=== PATIENT | female | born 1965 | race Caucasian/White ===

== ENCOUNTER 2021-02-11 08:42 | Outpatient (REF) | payer OTHER, SELFPAY ==
[2021-02-11 09:28] LABS: MANUAL DIFF FLAG NO
[2021-02-11 09:33] LABS: Basophils Absolute Auto 0.1 X10*3/uL (0.0-0.2); Basophils Percent Auto 0.8 % (0-2); Eosinophils Absolute Auto 0.1 X10*3/uL (0.0-0.4); Eosinophils Percent Auto 2.1 % (0-4); Hematocrit 44.9 % (37-47); Imm Gran Abs Auto 0.04 X10*3/uL (0.00-0.03); Imm Gran Pct Auto 0.6 % (0.0-0.4); Lymphocytes Absolute Auto 1.7 X10*3/uL (1.2-4.9); Lymphocytes Percent Auto 26.9 % (20-40); Mean Corpuscular HGB Conc 33.4 g/dl (31.0-35.0); Mean Corpuscular Hemoglobin 29.3 pg (27.0-33.0); Mean Corpuscular Volume 87.7 fL (80-98); Mean Platelet Volume 9.3 fL (9.4-12.3); Monocytes Absolute Auto 0.5 X10*3/uL (0.1-1.2); Neutrophils Absolute Auto 3.9 X10*3/uL (2.0-8.3); Neutrophils Percent Auto 61.6 % (45-73); Platelet Count 262 X10*3/uL (160-400); Red Blood Count 5.12 X10*6/uL (4.20-5.50); Red Cell Distribution Width 12.1 % (11.0-16.0); White Blood Count 6.3 X10*3/uL (4.8-10.8)
[2021-02-11 09:43] LABS: Appearance Urine HAZY; Color Urine YELLOW; Glucose Urine UA NEG (NEG); Leukocyte Esterase Urine 2+ (NEG); Nitrite Urine NEG (NEG); Urine Blood NEG (NEG); Urine Ketones NEG (NEG); Urine Protein NEG (NEG-TRACE)
[2021-02-11 09:51] LABS: Alanine Aminotransferase 45 U/L (0-31); Albumin Level 4.5 g/dL (3.5-5.0); Alkaline Phosphatase 68 U/L (39-117); Anion Gap 11 (12-20); Aspartate Amino Transferase 35 U/L (5-31); Bilirubin Total 0.4 mg/dL (0.0-1.0); Blood Urea Nitrogen 16 mg/dL (9-16); Carbon Dioxide 29 mmol/L (22-29); Chloride 106 mmol/L (96-108); Cholesterol 194 mg/dL; Estimated Glomerular Filt Rate > 60; Glucose Fasting 100 mg/dL (60-99); HDL Cholesterol 74 mg/dL; LDL Cholesterol Calculated 107 mg/dl; Potassium 4.8 mmol/L (3.3-5.1); Sodium 141 mmol/L (135-145); Total Protein 7.4 g/dL (6.5-8.0); Triglycerides 65 mg/dL
[2021-02-11 10:17] LABS: TSH reflex Free T4 1.68 uIU/mL (0.32-4.0)
[2021-02-11 10:31] LABS: Bacteria Urine 1+ /LPF; Mucus Urine 1+ /LPF; RBC Urine 0 /HPF (0); Squamous Epithelial Cell Urine 2+ /LPF
== END 2021-02-11 08:43 | disposition home or self-care (01) ==
LOC: HO.LAB 08:42
PROVIDERS: Absent Provider Internal Medicine; PCP Internal Medicine; Visit Provider Psychiatry & Neurology Neurology
DX: Z00.00 Encounter for general adult medical examination without abnormal findings (principal); C71.9 Malignant neoplasm of brain, unspecified
CPT/HCPCS: 36415; 80053; 80061; 81001; 84443; 85025

== ENCOUNTER 2021-02-17 12:26 | Outpatient (REF) | payer OTHER, SELFPAY ==
[2021-02-17 13:59] LABS: MANUAL DIFF FLAG NO
[2021-02-17 14:10] LABS: Basophils Percent Auto 0.3 % (0-2); Eosinophils Absolute Auto 0.2 X10*3/uL (0.0-0.4); Eosinophils Percent Auto 2.2 % (0-4); Hemoglobin 13.9 g/dl (12.0-16.0); Imm Gran Abs Auto 0.02 X10*3/uL (0.00-0.03); Imm Gran Pct Auto 0.3 % (0.0-0.4); Lymphocytes Absolute Auto 2.3 X10*3/uL (1.2-4.9); Lymphocytes Percent Auto 31.6 % (20-40); Mean Corpuscular HGB Conc 33.9 g/dl (31.0-35.0); Mean Corpuscular Hemoglobin 29.6 pg (27.0-33.0); Mean Corpuscular Volume 87.2 fL (80-98); Mean Platelet Volume 9.7 fL (9.4-12.3); Monocytes Absolute Auto 0.6 X10*3/uL (0.1-1.2); Monocytes Percent Auto 8.3 % (2-11); Neutrophils Absolute Auto 4.2 X10*3/uL (2.0-8.3); Neutrophils Percent Auto 57.3 % (45-73); Platelet Count 291 X10*3/uL (160-400); Red Cell Distribution Width 12.3 % (11.0-16.0); White Blood Count 7.2 X10*3/uL (4.8-10.8)
== END 2021-02-17 12:27 | disposition home or self-care (01) ==
LOC: HO.10HDL 12:26
PROVIDERS: Visit Provider Psychiatry & Neurology Neurology
DX: C71.9 Malignant neoplasm of brain, unspecified (principal)
CPT/HCPCS: 36415; 85025

== ENCOUNTER 2021-02-24 07:10 | Outpatient (REF) | payer OTHER, SELFPAY ==
[2021-02-24 10:22] LABS: MANUAL DIFF FLAG NO
[2021-02-24 10:27] LABS: Basophils Absolute Auto 0.1 X10*3/uL (0.0-0.2); Eosinophils Absolute Auto 0.2 X10*3/uL (0.0-0.4); Hematocrit 42.9 % (37-47); Hemoglobin 14.3 g/dl (12.0-16.0); Imm Gran Abs Auto 0.02 X10*3/uL (0.00-0.03); Imm Gran Pct Auto 0.4 % (0.0-0.4); Lymphocytes Absolute Auto 1.5 X10*3/uL (1.2-4.9); Lymphocytes Percent Auto 29.6 % (20-40); Mean Corpuscular HGB Conc 33.3 g/dl (31.0-35.0); Mean Corpuscular Hemoglobin 29.1 pg (27.0-33.0); Mean Corpuscular Volume 87.4 fL (80-98); Mean Platelet Volume 9.5 fL (9.4-12.3); Monocytes Absolute Auto 0.5 X10*3/uL (0.1-1.2); Monocytes Percent Auto 9.4 % (2-11); Neutrophils Absolute Auto 2.8 X10*3/uL (2.0-8.3); Neutrophils Percent Auto 56.6 % (45-73); Platelet Count 250 X10*3/uL (160-400); Red Blood Count 4.91 X10*6/uL (4.20-5.50); Red Cell Distribution Width 12.5 % (11.0-16.0)
== END 2021-02-24 07:11 | disposition home or self-care (01) ==
LOC: HO.10HDLR 07:10
PROVIDERS: Visit Provider Psychiatry & Neurology Neurology
DX: C71.9 Malignant neoplasm of brain, unspecified (principal)
CPT/HCPCS: 36415; 85025

== ENCOUNTER 2021-02-28 10:42 | Outpatient (REF) | payer OTHER, SELFPAY ==
[2021-02-28 14:00] LABS: Alanine Aminotransferase 27 U/L (0-31); Albumin Level 4.2 g/dL (3.5-5.0); Alkaline Phosphatase 72 U/L (39-117); Aspartate Amino Transferase 35 U/L (5-31); Bilirubin Direct < 0.2 mg/dL (0.0-0.5); Bilirubin Total 0.4 mg/dL (0.0-1.0); Total Protein 7.3 g/dL (6.5-8.0)
== END 2021-02-28 10:43 | disposition home or self-care (01) ==
LOC: HO.10HDL 10:42
PROVIDERS: Absent Provider Internal Medicine; Visit Provider Urology
DX: C71.9 Malignant neoplasm of brain, unspecified (principal)
CPT/HCPCS: 36415; 80076

== ENCOUNTER 2021-03-10 07:54 | Outpatient (REF) | payer OTHER, SELFPAY | END 2021-03-10 07:55 | disposition home or self-care (01) | LOC: HO.10HDLR 07:54 | PROVIDERS: Visit Provider Psychiatry & Neurology Neurology | DX: Z13.89 Encounter for screening for other disorder (principal) ==

== ENCOUNTER 2021-04-16 17:15 | Outpatient (REF) | payer OTHER, SELFPAY | END 2021-04-16 17:16 | disposition home or self-care (01) | LOC: HO.LNP 17:15 | PROVIDERS: Visit Provider Urology | DX: N39.0 Urinary tract infection, site not specified (principal) | CPT/HCPCS: 87086; 87147 ==

== ENCOUNTER → 2021-06-27 13:19 | Outpatient (BNVA) | payer OTHER, SELFPAY | PROVIDERS: PCP Internal Medicine; Referring Provider Internal Medicine; Visit Provider Surgery | DX: K64.8 Other hemorrhoids (principal) | CPT/HCPCS: 46600 ==

== ENCOUNTER 2021-07-16 06:08 | Emergency (ER) | payer OTHER, SELFPAY ==
--- NOTE | ~2021-07-16 | XR_ITS ---
EXAMINATION: XR CLAVICLE, RIGHT CLINICAL INFORMATION: Pain under the clavicle COMPARISON: None TECHNIQUE: Two views of the right clavicle. FINDINGS: There is no fracture or cortical disruption. Appropriate positioning of the clavicle. The acromioclavicular joint is intact. The visualized lung is clear. The visualized ribs are intact. Appropriate alignment of the right shoulder. XR/XR clavicle RT IMPRESSION: Normal right clavicle.
[2021-07-16 06:19] VITALS: BP 117/87; PULSE 89; RESP 18; TEMP 36.8; O2SAT 97; BMI 20.2
--- NOTE | 2021-07-16 07:29 | ED.GENADULT ---
HPI - General Adult General Chief complaint: Neck Pain/Injury Stated complaint: neck pain, PT diagnosed with brain cancer Time Seen by Provider: 07/16/21 07:10 Source: patient Mode of arrival: ambulatory Limitations: no limitations History of Present Illness HPI narrative: Patient comes to the emergency room complaining of jolting pain on the right side of the neck, mostly under the right clavicle. Patient also complaining of right upper and lower eyelid swelling and eye pain. Patient denies fever. Patient does have chills. The patient states that she is currently enrolled in a [facility] trial for glioblastoma, taking a drug called [id number]. Per patient, it is known to be a side effect of the drug. Patient states that prior to arrival to the ED, she took a muscle relaxant, but did not help much. Patient is concerned that muscle relaxants cause her to have severe constipation. Related Data Home Medications Medication Instructions Recorded Confirmed vitamin B complex (B 1 tab PO DAILY 02/05/21 06/27/21 Complex-Vitamin B12) amoxicillin 875 mg-potassium 1 tab PO BID 06/27/21 06/27/21 clavulanate 125 mg tablet Previous Rx's Medication Instructions Recorded estradiol See Rx Instructions .ROUTE 3XW 30 02/28/21 Days #42.5 g amlodipine 2.5 mg tablet 2.5 mg PO DAILY #90 tab 04/30/21 linaclotide 290 mcg capsule 290 mcg PO DAILY #30 cap 07/14/21 (Linzess) sulfamethoxazole 800 1 tab PO BID 14 Days #28 tab 07/15/21 mg-trimethoprim 160 mg tablet (Bactrim DS) diazepam 2 mg tablet (Valium) 2 mg PO TID PRN #10 tab 07/16/21 diclofenac sodium 1 % topical gel 4 g TOPICAL QID PRN #100 g 07/16/21 (Voltaren Arthritis Pain) erythromycin 5 mg/gram (0.5 %) eye 1 appl OPHTHALMIC-RIGHT DAILY #3.5 07/16/21 ointment g lactulose 10 gram oral packet 20 g PO TID PRN #15 ea 07/16/21 Allergies Allergy/AdvReac Type Severity Reaction Status Date / Time No Known Allergies Allergy Verified 06/27/21 13:32 Review of Systems Review of Systems: Constitutional : No Weight loss, No Fever, complaining intermittent Chills, No Night Sweats, No Fatigue, No Malaise ENT/Mouth : No Hearing loss, No Ear Pain, No Nasal Congestion, No Sinus Pain, No Hoarseness, No sore throat, No Rhinorrhea, No Swallowing Difficulty Eyes: Complaining right eye pain, swelling of both upper and lower eyelids, very photosensitive Cardiovascular : No Chest Pain, No SOB, No Dyspnea on Exertion, No Orthopnea, No Edema, No Palpitations Respiratory : No Cough, No Sputum, No Wheezing, No Smoke Exposure, No Dyspnea Gastrointestinal : No Nausea, No Vomiting, No Diarrhea, No Constipation, No abdominal Pain, No Hematochezia, No Melena Genitourinary : no irregular bleeding, No Dysuria, No Urinary Frequency, No Hematuria, No Urinary Incontinence, No Urgency, No Flank Pain, No Urinary Flow Changes, No Hesitancy Musculoskeletal : Complaining of jolting pain on the right side of the neck and the knee the right clavicle Skin : No Skin Lesions, No rash Neuro : No Weakness, No Numbness, No Paresthesias, No Loss of Consciousness, No Dizziness, No Headache Psych : No Anxiety/Panic, No Depression, No SI/HI/AH/VH, No Social Issues, Heme/Lymph: No Bruising, No Bleeding,No Lymphadenopathy Endocrine : No Polyuria, No Polydipsia, No Temperature Intolerance PMFSH Past Medical History Medical History Annual physical exam Elevated LFTs Glioblastoma Hemorrhoids with complication HTN (hypertension) Normal colonoscopy Normal Pap smear Surgical History Hx of breast augmentation Hx of craniotomy Hx of sinus surgery Family History Family History Son Substance use disorder Brother Substance use disorder Social History Social History Household Members Other:: , 4 adult childern, exercise , runs marathons. Housing: House Patient Tobacco Use Status: Never used Tobacco e-Cigarette/Vaping Use: Never Used Second Hand Smoke Exposure: No Advance Directives: No Advance Directives Information Provided: Yes Patient : No service: No Current occupational status: employed Physical Exam Vital Signs: Vital Signs: Last Vital Signs Temp 98.2 F 07/16/21 06:19 Pulse 89 07/16/21 06:19 Resp 18 07/16/21 06:19 BP 117/87 07/16/21 06:19 Pulse Ox 97 07/16/21 06:19 BMI result Body Mass Index 20.2 Const: Other: Appearance: Alert. Oriented X3. No acute distress. Eyes: Pupils equal, round and reactive to light. Right eye has significant photosensitivity. Both upper and lower eyelids are mildly sensitive to touch, swollen, erythematous, no vesicles. Patient has no pain with eye movements. ENT: Pharynx normal. Fluorescent stain negative for corneal abrasions or dendrites Neck: Normal inspection. Neck supple. No lymph nodes noted. No crepitus, no abnormalities palpated above or below the right clavicle CVS: Normal heart rate and rhythm. Pulses normal. Normal S1 and S2 Respiratory: No respiratory distress. Breath sounds normal. No Wheezing. No rales Abdomen: Soft and nontender. Skin: Skin warm and dry. Extremities: No lower extremity edema. Neuro: Oriented X 3. No motor deficit. No sensory deficit. Moving all extermities. No slurred speech. Course Course Course Narrative: I discussed the physical exam with the patient and her . Patient likely has irritation in her eye from constantly rubbing her eye/cleaning from chronic tearing. Patient felt much better after Valium, no longer having the pain under her clavicle/right side of the neck. I discussed with the patient that she would benefit from erythromycin ointment, to prevent infection and also to sooth the eyelid skin from constant rubbing Discharge Plan Discharge Clinical Impression: Muscle spasm, Dermatitis Patient Disposition: Home, Self-Care Instructions: Muscle Spasm (ED), Dermatitis (ED) Additional Instructions: Please follow-up with your primary care physician tomorrow. If the eye does not improve over the shaver have any new symptoms, please call your field logistics coordinator. If you have any worsening or new symptoms, please return to the emergency room or call 911 Prescriptions: New erythromycin 5 mg/gram (0.5 %) ointment 1 appl ophthalmic-Right DAILY Qty: 3.5 1RF diazepam [Valium] 2 mg tablet 2 mg PO TID PRN (Reason: muscle spasm) Qty: 10 0RF lactulose 10 gram packet 20 g PO TID PRN (Reason: constipation) Qty: 15 0RF diclofenac sodium [Voltaren Arthritis Pain] 1 % gel 4 g topical QID PRN (Reason: muscle spasticity) Qty: 100 0RF Rx Instructions: apply to single knee, ankle, foot; for foot includes sole/toes/top of foot No Action estradiol 0.01 % (0.1 mg/gram) cream See Rx Instructions .Route 3XW 30 Days Qty: 42.5 2RF Rx Instructions: pea-sized to urethra 3 times a week amlodipine 2.5 mg tablet 2.5 mg PO DAILY Qty: 90 0RF Linzess 290 mcg capsule 290 mcg PO DAILY Qty: 30 3RF sulfamethoxazole-trimethoprim [Bactrim DS] 800-160 mg tablet 1 tab PO BID 14 Days Qty: 28 1RF vitamin B complex [B Complex-Vitamin B12] Tablet 1 tab PO DAILY 0RF amoxicillin-pot clavulanate 875-125 mg tablet 1 tab PO BID 0RF
--- NOTE | 2021-07-16 07:31 | PC.NURSE ---
PT IN SEVERE PAIN WHEN MOVING NECK. ASSISTED TO BED. AT BEDSIDE
[2021-07-16] MEDS: diazePAM 5 MG TABLET PO (07:50)
[2021-07-16] MEDS: Tetracaine HCl/PF 0.5% Oph Sol 4 ML DROPS 1 DROP EYE-RIGHT (07:50)
[2021-07-16] MEDS: Fluorescein Sodium STRIP 1 STRIP EYE-RIGHT (07:50)
== END 2021-07-16 08:46 | disposition home or self-care (01) ==
PROVIDERS: Emergency Provider Emergency Medicine; PCP Internal Medicine
DX: M62.838 Other muscle spasm (principal); M54.2 Cervicalgia; L30.9 Dermatitis, unspecified; C71.9 Malignant neoplasm of brain, unspecified; I10 Essential (primary) hypertension
CPT/HCPCS: 73000; 99283

== ENCOUNTER 2021-08-08 16:24 | Outpatient (REF) | payer OTHER, SELFPAY ==
--- NOTE | ~2021-08-08 | XR_ITS ---
EXAMINATION: XR THORACOLUMBAR SPINE CLINICAL INFORMATION: Back spasms COMPARISON: None TECHNIQUE: 2 views of the thoracic spine FINDINGS: Mild degenerative endplate changes in the midthoracic spine. No fracture. Visualized mediastinum and lungs are unremarkable. XR/XR thoracic spine 2V IMPRESSION: Mild degenerative changes in the midthoracic spine. No fracture.
--- NOTE | ~2021-08-08 | XR_ITS ---
EXAMINATION: XR LUMBOSACRAL SPINE CLINICAL INFORMATION: Chest pain. Back spasms. COMPARISON: None TECHNIQUE: Three views of the lumbosacral spine. FINDINGS: Mild degenerative disc space narrowing at L5-S1. Otherwise vertebral disc space heights are maintained. Vertebral body heights appear normal. No compression fracture. Alignment is anatomic. XR/XR lumbar spine 2-3V IMPRESSION: Mild degenerative disc disease at L5-S1.
== END 2021-08-08 16:25 | disposition home or self-care (01) ==
LOC: HO.XRAY 16:24
PROVIDERS: PCP Internal Medicine; Visit Provider Internal Medicine
DX: R07.9 Chest pain, unspecified (principal); M48.061 Spinal stenosis, lumbar region without neurogenic claudication
CPT/HCPCS: 72070; 72100

== ENCOUNTER 2021-12-09 09:27 | Outpatient (REF) | payer OTHER, SELFPAY ==
--- NOTE | ~2021-12-09 | XR_ITS ---
EXAMINATION: STERNUM AND CHEST X-RAY. CLINICAL INFORMATION: Chest pain. COMPARISON: None TECHNIQUE: 2 views chest and sternum 2 views. FINDINGS: STERNUM: There is no visible fracture or cortical irregularity. The PA and posterolateral soft tissues are normal. CHEST: The lungs are well-expanded and clear. The heart size and pulmonary vascularity is normal. There is bilateral apical pleural thickening. There is no pleural effusion. No gross bony abnormality. XR/XR chest 2V IMPRESSION: Unremarkable sternal exam. Unremarkable chest and rib exam.
--- NOTE | ~2021-12-09 | XR_ITS ---
EXAMINATION: STERNUM AND CHEST X-RAY. CLINICAL INFORMATION: Chest pain. COMPARISON: None TECHNIQUE: 2 views chest and sternum 2 views. FINDINGS: STERNUM: There is no visible fracture or cortical irregularity. The PA and posterolateral soft tissues are normal. CHEST: The lungs are well-expanded and clear. The heart size and pulmonary vascularity is normal. There is bilateral apical pleural thickening. There is no pleural effusion. No gross bony abnormality. XR/XR sternum min 2V IMPRESSION: Unremarkable sternal exam. Unremarkable chest and rib exam.
[2021-12-09 10:24] LABS: MANUAL DIFF FLAG NO
[2021-12-09 10:30] LABS: Basophils Absolute Auto 0.1 X10*3/uL (0.0-0.2); Basophils Percent Auto 1.3 % (0-2); Eosinophils Absolute Auto 0.2 X10*3/uL (0.0-0.4); Eosinophils Percent Auto 3.2 % (0-4); Hematocrit 37.1 % (37.0-47.0); Hemoglobin 11.3 g/dl (12.0-16.0); Imm Gran Abs Auto 0.02 X10*3/uL (0.00-0.03); Imm Gran Pct Auto 0.3 % (0.0-0.4); Lymphocytes Absolute Auto 0.9 X10*3/uL (1.2-4.9); Lymphocytes Percent Auto 13.3 % (20-40); Mean Corpuscular HGB Conc 30.5 g/dl (31.0-35.0); Mean Corpuscular Hemoglobin 25.1 pg (27.0-33.0); Mean Corpuscular Volume 82.3 fL (80.0-98.0); Mean Platelet Volume 9.5 fL (9.4-12.3); Monocytes Absolute Auto 0.5 X10*3/uL (0.1-1.2); Monocytes Percent Auto 7.8 % (2-11); Neutrophils Absolute Auto 5.1 x10*3/uL (2.0-8.3); Neutrophils Percent Auto 74.1 % (45-73); Platelet Count 341 X10*3/uL (160-400); Red Blood Count 4.51 X10*6/uL (4.20-5.50); Red Cell Distribution Width 15.3 % (11.0-16.0); White Blood Count 6.9 X10*3/uL (4.8-10.8)
[2021-12-09 10:54] LABS: Alanine Aminotransferase 12 U/L (0-31); Albumin Level 3.9 g/dL (3.5-5.0); Alkaline Phosphatase 99 U/L (39-117); Anion Gap 12 (12-20); Aspartate Amino Transferase 16 U/L (5-31); Bilirubin Total 0.2 mg/dL (0.0-1.0); Blood Urea Nitrogen 22 mg/dL (9-16); C Reactive Protein 5.38 mg/dL (< or = 0.50); Calcium 9.3 mg/dL (8.4-10.2); Carbon Dioxide 30 mmol/L (22-29); Chloride 104 mmol/L (96-108); Estimated Glomerular Filt Rate 58; Glucose Random 101 mg/dL (60-115); Potassium 4.6 mmol/L (3.3-5.1); Rheumatoid Factor < 15.0 IU/mL (<15.0); Sodium 141 mmol/L (135-145); Total Protein 6.9 g/dL (6.5-8.0)
[2021-12-09 11:00] LABS: Creatinine Urine 159.51 mg/dL; Protein/Creatinine Ratio, Ur 0.19 (<0.2); Total Protein Urine Random 30 mg/dL (<12)
[2021-12-09 11:21] LABS: Erythrocyte Sedimentation Rate 79 MM/HR (0-20)
[2021-12-12 15:07] LABS: Anti Nuclear Antibody Screen POSITIVE (NEGATIVE)
[2021-12-15 13:55] LABS: Cyclic Citrullinated Peptide <16 UNITS
== END 2021-12-09 09:28 | disposition home or self-care (01) ==
LOC: HO.10HDL 09:27
PROVIDERS: Visit Provider Internal Medicine Rheumatology
DX: R07.89 Other chest pain (principal); R70.0 Elevated erythrocyte sedimentation rate
CPT/HCPCS: 36415; 71046; 71120; 80053; 84156; 85025; 85652; 86038; 86039; 86140; 86200; 86431

== ENCOUNTER 2021-12-18 12:37 | Outpatient (REF) | payer OTHER, SELFPAY ==
--- NOTE | ~2021-12-18 | XR_ITS ---
EXAMINATION: XR HIP, LEFT WITH AP PELVIS CLINICAL INFORMATION: Left hip pain. COMPARISON: None TECHNIQUE: AP and frog-leg lateral views of the left hip are submitted, together with an AP view of the pelvis. FINDINGS: The bones and soft tissues are normal. No fracture. Sacroiliac and hip joints are normal. Pubic symphysis is normal. No abnormal soft tissue calcifications. XR/XR hip LT w PEL1V IMPRESSION: Normal left hip.
== END 2021-12-18 12:38 | disposition home or self-care (01) ==
LOC: HO.XRAY 12:37
PROVIDERS: PCP Internal Medicine; Visit Provider Internal Medicine Rheumatology
DX: M25.552 Pain in left hip (principal); C71.9 Malignant neoplasm of brain, unspecified
CPT/HCPCS: 73502

== ENCOUNTER 2022-01-15 11:49 | Emergency (ER) | payer OTHER, SELFPAY ==
--- NOTE | ~2022-01-15 | CT_ITS ---
EXAMINATION: CT HEAD WITHOUT CONTRAST CLINICAL INFORMATION: Right eye vision loss COMPARISON: None TECHNIQUE: Contiguous axial imaging was performed from the skull base to vertex without intravenous administration of contrast. Coronal and sagittal reformatted images are performed at CT scanner This CT examination was performed using dose optimization techniques as appropriate, variously including the following: *Automated exposure control *Adjustment of mA and/or kV according to patient size (this includes techniques or standardized protocols for targeted exams where dose is matched to indication/reason for exam; i.e. extremities or head) *Use of iterative reconstruction technique DLP: 707 mGy-cm FINDINGS: Status post right parietal-occipital craniotomy. There is an adjacent focal area of encephalomalacia in the right parietal-occipital lobe which is chronic. Ex-vacuo dilatation of the adjacent right lateral ventricle. No acute intracranial abnormality. There is no evidence of acute intracranial hemorrhage or acute territorial infarction. No abnormal mass effect or midline shift is seen. Dalal to white matter differentiation is well preserved. No extra-axial fluid collections are identified. There is generalized global volume loss. There is moderate prominence of the ventricles and the sulci . There is mild hypodensity of the periventricular white matter due to chronic small vessel ischemic disease. There are vascular calcifications of the internal carotid arteries bilaterally.The osseous structures and soft tissues are normal. The mastoid air cells and visualized portions of the paranasal sinuses are well aerated. CT/CT head/brain wo con IMPRESSION: No acute intracranial pathology.
[2022-01-15 12:12] VITALS: BP 152/82; PULSE 71; RESP 20; TEMP 36.7; O2SAT 99; BMI 22.9
[2022-01-15 14:59] VITALS: BP 132/74; PULSE 64; TEMP 36.9; O2SAT 95
--- NOTE | 2022-01-15 15:01 | ED_ITS ---
HPI - Eye Problem General Chief complaint: Eye Problems Stated complaint: Loss of vision R eye Time Seen by Provider: 01/15/22 12:16 Source: patient Mode of arrival: ambulatory Limitations: no limitations History of Present Illness HPI Narrative: this is very pleasent pt with hx of glioblastoma,seen Yesterday at [facility] MRI brain showed no new changes,poresented now with loss of vision OD,denies MURPHY,fever,any sistemic symptoms chief complaint: other (RT eye vision loss) Onset (ago): hour(s) (8) Onset description: sudden Duration: constant Location: right eye Eye Symptoms: burning Place: home Mechanism: none Related Data Home Medications Medication Instructions Recorded Confirmed vitamin B complex (B 1 tab PO DAILY 02/05/21 12/04/21 Complex-Vitamin B12 tablet) fluoxetine 10 mg capsule 10 mg PO DAILY 09/03/21 12/04/21 acetaminophen 650 mg 650 mg PO Q12H PRN 12/04/21 12/04/21 tablet,extended release (Tylenol Arthritis Pain) pyridoxine (vitamin B6) 50 mg 50 mg PO DAILY 12/04/21 12/04/21 tablet Previous Rx's Medication Instructions Recorded estradiol 0.01% (0.1 mg/gram) See Rx Instructions .Route 3XW 30 02/28/21 vaginal cream days #42.5 grams baclofen 10 mg tablet 10 mg PO BEDTIME #30 tabs 12/29/21 celecoxib 200 mg capsule (Celebrex) 200 mg PO BID #60 caps 01/02/22 Allergies Allergy/AdvReac Type Severity Reaction Status Date / Time No Known Allergies Allergy Verified 12/04/21 08:21 Review of Systems Review of Systems: Yes all other systems are reviewed and are negative Constitutional: Constitutional: Reports no additional constitutional complaints Eyes: Eyes: Reports other (rt eye vision loss) Respiratory: Respiratory: Reports no additional respiratory complaints Allergic/Immunologic: Allergic/Immunologic: Reports no additional allergi c/immunologic complaints PMFSH Past Medical History Medical History Degenerative lumbar spinal stenosis Elevated LFTs Glioblastoma Hemorrhoids with complication HTN (hypertension) Normal colonoscopy Normal Pap smear Thoracalgia Surgical History Hx of breast augmentation Hx of craniotomy Hx of sinus surgery Family History Family History Son Substance use disorder Brother Substance use disorder Social History Social History Household Members Other:: , 4 adult childern, exercise , runs marathons. Housing: House Alcohol intake: never Patient Tobacco Use Status: Never used Tobacco e-Cigarette/Vaping Use: Never Used Second Hand Smoke Exposure: No Use of substances other than those prescribed or required for medical reasons: No Advance Directives: No Advance Directives Information Provided: No service: No Current occupational status: employed Cognitive needs: No Hearing needs: No Vision needs: No Physical Exam Vital Signs: Vital Signs: Last Vital Signs Temp 98.5 F 01/15/22 14:59 Pulse 68 01/15/22 16:25 Resp 15 01/15/22 16:25 BP 137/87 01/15/22 16:25 Pulse Ox 98 01/15/22 16:25 O2 Del Method 01/15/22 16:25 BMI result Body Mass Index 22.9 Const: General: cooperative and healthy appearing HEENT: Head: Yes normal to inspection Ears: hearing grossly normal bilaterally General nose exam: Normal external nose present Face and sinus: Yes normal facial exam Mouth: Normal oral and palatal mucosa present Throat: Yes posterior oropharynx normal Eyes: Other: RT eye red pupil round,unable to read 5 finger; us done no evidence of retinal detachment Eyelids: Yes eyelids normal Sclerae: scleral abnormal (red) right Neck: Neck: Yes normal visual inspection and Yes full ROM Thyroid: Thyroid normal Chest: Chest palpation & inspection: normal inspection of the chest Resp: Effort & Inspection: normal respiratory effort and able to speak in complete sentences Auscultation: clear to auscultation bilaterally Cardio: Jugular venous distension: no JVD Rate: regular rate Rhythm: regular rhythm GI: Inspection: Yes normal to inspection Percussion: Yes normal to percussion Skin: General skin exam: no rashes or lesions noted Lesions: no lesions Rashes: no rashes Course Reevaluation(s) Reevaluation #1: no ophtalmologist at [facility] I texted Dr Kidd he is no available. Callled [facility] refused transfer (per e commerce merchandising coordinator) Called [facility] e commerce merchandising coordinator they will call me back Time: 15:50 Reevaluation #2: I spoke with [facility] transfer Spoke with Stroke eye Doctor she was accepted in transfer to ED Dr Donnelly(ed) accept the case in ED Reevaluation #3: AMBULANCE HERE TO TAKE THE PT Time: 17:01 MDM - Eye Problem MDM Narrative Medical decision making narrative: PT PRESENT WITH RT EYE ACUTE VISUAL LOSS NOW MORE THAN 7 H ,I PERFORMED EYE US NO RETINAL DETACHMENT ,SHE CAN BARELY SEE MY HAND ,PT WILL NEED EMERGENT RN IMAGING CONSULT THIS IS PRETTY DISABLING,I DO NOT THINK IS RELATED TO HER BRAIN TUMOR SHE HAD NORMAL MRI in [place] (I saw the report in her patient portal) . I consulted also with her oncologist in [place] she requesting urgent Ophatalmologist eval Lab Data Result diagrams: 01/15/22 15:54 01/15/22 15:54 Labs: Lab Results 01/15/22 01/15/22 01/15/22 Range/Units 15:54 15:54 15:54 WBC 9.5 (4.8-10.8) X10*3/uL RBC 4.17 L (4.20-5.50) X10*6/uL Hgb 10.4 L (12.0-16.0) g/dl Hct 33.4 L (37.0-47.0) % MCV 80.1 (80.0-98.0) fL MCH 24.9 L (27.0-33.0) pg MCHC 31.1 (31.0-35.0) g/dl RDW 15.8 (11.0-16.0) % Plt Count 363 (160-400) X10*3/uL MPV 9.0 L (9.4-12.3) fL Immature Gran % (Auto) 0.4 (0.0-0.4) % Neut % (Auto) 72.5 (45-73) % Lymph % (Auto) 16.9 L (20-40) % Saline % (Auto) 7.4 (2-11) % Eos % (Auto) 2.1 (0-4) % Baso % (Auto) 0.7 (0-2) % Lymph # (Auto) 1.6 (1.2-4.9) X10*3/uL Saline # (Auto) 0.7 (0.1-1.2) X10*3/uL Eos # (Auto) 0.2 (0.0-0.4) X10*3/uL Baso # (Auto) 0.1 (0.0-0.2) X10*3/uL Abs Immat Gran (auto) 0.04 H (0.00-0.03) X10*3/uL Absolute Neuts (auto) 6.9 (2.0-8.3) x10*3/uL Absolute Nucleated RBC 0.000 (0.0-0.012) X10*3/uL Nucleated RBC % (auto) 0.0 (0.0-0.2) /100WBC ESR 79 H (0-20) MM/HR Sodium 142 (135-145) mmol/L Potassium 3.9 (3.3-5.1) mmol/L Chloride 102 (96-108) mmol/L Carbon Dioxide 27 (22-29) mmol/L Anion Gap 17 (12-20) BUN 21 H (9-16) mg/dL Creatinine 1.07 (0.5-1.4) mg/dL Estim Creat Clear Calc 54.1 Estimated GFR 53 Random Glucose 82 (60-115) mg/dL Calcium 9.4 (8.4-10.2) mg/dL Total Bilirubin < 0.2 (0.0-1.0) mg/dL AST 31 D (5-31) U/L ALT 36 H (0-31) U/L Alkaline Phosphatase 97 (39-117) U/L Total Protein 7.8 (6.5-8.0) g/dL Albumin 4.3 (3.5-5.0) g/dL COVID-19 ([facility]) (Negative) COVID-19 Clin Com 01/15/22 Range/Units 15:54 WBC (4.8-10.8) X10*3/uL RBC (4.20-5.50) X10*6/uL Hgb (12.0-16.0) g/dl Hct (37.0-47.0) % MCV (80.0-98.0) fL MCH (27.0-33.0) pg MCHC (31.0-35.0) g/dl RDW (11.0-16.0) % Plt Count (160-400) X10*3/uL MPV (9.4-12.3) fL Immature Gran % (Auto) (0.0-0.4) % Neut % (Auto) (45-73) % Lymph % (Auto) (20-40) % Saline % (Auto) (2-11) % Eos % (Auto) (0-4) % Baso % (Auto) (0-2) % Lymph # (Auto) (1.2-4.9) X10*3/uL Saline # (Auto) (0.1-1.2) X10*3/uL Eos # (Auto) (0.0-0.4) X10*3/uL Baso # (Auto) (0.0-0.2) X10*3/uL Abs Immat Gran (auto) (0.00-0.03) X10*3/uL Absolute Neuts (auto) (2.0-8.3) x10*3/uL Absolute Nucleated RBC (0.0-0.012) X10*3/uL Nucleated RBC % (auto) (0.0-0.2) /100WBC ESR (0-20) MM/HR Sodium (135-145) mmol/L Potassium (3.3-5.1) mmol/L Chloride (96-108) mmol/L Carbon Dioxide (22-29) mmol/L Anion Gap (12-20) BUN (9-16) mg/dL Creatinine (0.5-1.4) mg/dL Estim Creat Clear Calc Estimated GFR Random Glucose (60-115) mg/dL Calcium (8.4-10.2) mg/dL Total Bilirubin (0.0-1.0) mg/dL AST (5-31) U/L ALT (0-31) U/L Alkaline Phosphatase (39-117) U/L Total Protein (6.5-8.0) g/dL Albumin (3.5-5.0) g/dL COVID-19 ([facility]) Negative (Negative) COVID-19 Clin Com See Note Imaging Data CT scan - head: Radiologist's impression: FINDINGS: Status post right parietal-occipital craniotomy. There is an adjacent focal area of encephalomalacia in the right parietal-occipital lobe which is chronic. Ex-vacuo dilatation of the adjacent right lateral ventricle. No acute intracranial abnormality. There is no evidence of acute intracranial hemorrhage or acute territorial infarction. No abnormal mass effect or midline shift is seen. Dalal to white matter differentiation is well preserved. No extra-axial fluid collections are identified. There is generalized global volume loss. There is moderate prominence of the ventricles and the sulci . There is mild hypodensity of the periventricular white matter due to chronic small vessel ischemic disease. There are vascular calcifications of the internal carotid arteries bilaterally.The osseous structures and soft tissues are normal. The mastoid air cells and visualized portions of the paranasal sinuses are well aerated. ? CT/CT head/brain wo con IMPRESSION: No acute intracranial pathology. Dictated By: Yossi Martínez MD Signed By: <Electronically signed by Yossi Martínez MD in OV> 01/15/22 1710 DD/ 1635 Discharge Plan Discharge Clinical Impression: Loss of vision Patient Disposition: Xfer Acute Care Hospital Transfer Details: No eye doctor international logistics coordinator for [facility] not accepting pt Prescriptions: No Action estradiol 0.01 % (0.1 mg/gram) cream See Rx Instructions .Route 3XW 30 Days Qty: 42.5 2RF Rx Instructions: pea-sized to urethra 3 times a week baclofen 10 mg tablet 10 mg PO BEDTIME Qty: 30 3RF celecoxib [Celebrex] 200 mg capsule 200 mg PO BID Qty: 60 2RF vitamin B complex [B Complex-Vitamin B12] Tablet 1 tab PO DAILY fluoxetine 10 mg capsule 10 mg PO DAILY acetaminophen [Tylenol Arthritis Pain] 650 mg tablet extended release 650 mg PO Q12H PRN pyridoxine (vitamin B6) 50 mg tablet 50 mg PO DAILY Interventions: Acute Care Transfer Worksheet (ED) Last Done: 01/15/22 17:41 Discharge Date/Time: 01/15/22 17:44
--- NOTE | 2022-01-15 15:32 | PC.NURSE ---
@3929 KIARA LIN A CALL TO [facility] TRANSFER LINE. THEY CLOSE FOR TRANSFERS ONLY ACCEPTING STEMI AND STROKES
--- NOTE | 2022-01-15 15:35 | PC.NURSE ---
@1521 KIARA LIN A CALL TO [facility] TRANSFER LINE. SPOKE TO CLARENCE AND SHE TOOK DOWN PATIENT INFORMATION AND REQ TO SPEAK TO KIARA. KIARA PICKED UP RIGHT AWAY.
[2022-01-15 16:18] LABS: MANUAL DIFF FLAG NO
[2022-01-15 16:24] LABS: Basophils Absolute Auto 0.1 X10*3/uL (0.0-0.2); Basophils Percent Auto 0.7 % (0-2); Eosinophils Absolute Auto 0.2 X10*3/uL (0.0-0.4); Eosinophils Percent Auto 2.1 % (0-4); Hematocrit 33.4 % (37.0-47.0); Hemoglobin 10.4 g/dl (12.0-16.0); Imm Gran Abs Auto 0.04 X10*3/uL (0.00-0.03); Imm Gran Pct Auto 0.4 % (0.0-0.4); Lymphocytes Absolute Auto 1.6 X10*3/uL (1.2-4.9); Lymphocytes Percent Auto 16.9 % (20-40); Mean Corpuscular HGB Conc 31.1 g/dl (31.0-35.0); Mean Corpuscular Hemoglobin 24.9 pg (27.0-33.0); Mean Corpuscular Volume 80.1 fL (80.0-98.0); Monocytes Absolute Auto 0.7 X10*3/uL (0.1-1.2); Monocytes Percent Auto 7.4 % (2-11); Neutrophils Absolute Auto 6.9 x10*3/uL (2.0-8.3); Neutrophils Percent Auto 72.5 % (45-73); Platelet Count 363 X10*3/uL (160-400); Red Blood Count 4.17 X10*6/uL (4.20-5.50); Red Cell Distribution Width 15.8 % (11.0-16.0); White Blood Count 9.5 X10*3/uL (4.8-10.8)
[2022-01-15 16:25] VITALS: BP 137/87; PULSE 68; RESP 15; O2SAT 98
[2022-01-15] MEDS: LORazepam 1 MG TABLET PO (16:26)
[2022-01-15 16:38] LABS: Alanine Aminotransferase 36 U/L (0-31); Albumin Level 4.3 g/dL (3.5-5.0); Alkaline Phosphatase 97 U/L (39-117); Anion Gap 17 (12-20); Aspartate Amino Transferase 31 U/L (5-31); Bilirubin Total < 0.2 mg/dL (0.0-1.0); Blood Urea Nitrogen 21 mg/dL (9-16); Calcium 9.4 mg/dL (8.4-10.2); Carbon Dioxide 27 mmol/L (22-29); Chloride 102 mmol/L (96-108); Creatinine Clr Calc Pharmacy 54.1; Estimated Glomerular Filt Rate 53; Glucose Random 82 mg/dL (60-115); Potassium 3.9 mmol/L (3.3-5.1); Sodium 142 mmol/L (135-145); Total Protein 7.8 g/dL (6.5-8.0)
[2022-01-15 16:59] LABS: Erythrocyte Sedimentation Rate 79 MM/HR (0-20)
[2022-01-15 17:12] LABS: COVID-19 Test Negative (Negative); IDNOW Serial# 16C4AD1C
== END 2022-01-15 17:44 | disposition short-term general hospital (02) ==
PROVIDERS: Emergency Provider Emergency Medicine; PCP Internal Medicine
DX: H54.61 Unqualified visual loss, right eye, normal vision left eye (principal); Z20.822 Contact with and (suspected) exposure to COVID-19; C71.9 Malignant neoplasm of brain, unspecified
CPT/HCPCS: 36415; 70450; 80053; 85025; 85652; 87635; 99285

== ENCOUNTER 2022-02-10 14:09 | Outpatient (REF) | payer OTHER, SELFPAY ==
[2022-02-10 16:19] LABS: MANUAL DIFF FLAG NO
[2022-02-10 16:31] LABS: Basophils Absolute Auto 0.1 X10*3/uL (0.0-0.2); Eosinophils Absolute Auto 0.3 X10*3/uL (0.0-0.4); Hematocrit 37.6 % (37.0-47.0); Hemoglobin 11.8 g/dl (12.0-16.0); Imm Gran Abs Auto 0.02 X10*3/uL (0.00-0.03); Imm Gran Pct Auto 0.2 % (0.0-0.4); Lymphocytes Absolute Auto 1.5 X10*3/uL (1.2-4.9); Lymphocytes Percent Auto 18.3 % (20-40); Mean Corpuscular HGB Conc 31.4 g/dl (31.0-35.0); Mean Corpuscular Hemoglobin 25.7 pg (27.0-33.0); Mean Corpuscular Volume 81.9 fL (80.0-98.0); Mean Platelet Volume 9.2 fL (9.4-12.3); Monocytes Absolute Auto 0.7 X10*3/uL (0.1-1.2); Monocytes Percent Auto 8.8 % (2-11); Neutrophils Absolute Auto 5.8 x10*3/uL (2.0-8.3); Neutrophils Percent Auto 68.7 % (45-73); Platelet Count 363 X10*3/uL (160-400); Red Blood Count 4.59 X10*6/uL (4.20-5.50); Red Cell Distribution Width 15.6 % (11.0-16.0); White Blood Count 8.4 X10*3/uL (4.8-10.8)
[2022-02-10 16:51] LABS: Alanine Aminotransferase 15 U/L (0-31); Albumin Level 4.1 g/dL (3.5-5.0); Alkaline Phosphatase 102 U/L (39-117); Anion Gap 16 (12-20); Aspartate Amino Transferase 20 U/L (5-31); Bilirubin Total < 0.2 mg/dL (0.0-1.0); Blood Urea Nitrogen 19 mg/dL (9-16); Calcium 9.5 mg/dL (8.4-10.2); Carbon Dioxide 26 mmol/L (22-29); Chloride 103 mmol/L (96-108); Estimated Glomerular Filt Rate 51; Glucose Random 115 mg/dL (60-115); Iron 38 mcg/dL (30-160); Percent Iron Saturation 13 % (15-50); Sodium 140 mmol/L (135-145); Total Iron Binding Capacity 290 mcg/dL (228-428); Total Protein 7.6 g/dL (6.5-8.0); Unsaturated Iron Binding 252 ug/dL
== END 2022-02-10 14:10 | disposition home or self-care (01) ==
LOC: HO.HMGCLDS 14:09
PROVIDERS: PCP Internal Medicine; Visit Provider Internal Medicine
DX: Z00.00 Encounter for general adult medical examination without abnormal findings (principal)
CPT/HCPCS: 36415; 80053; 83540; 85025

== ENCOUNTER 2022-03-09 13:41 | Outpatient (REF) | payer OTHER, SELFPAY ==
[2022-03-09 16:37] LABS: MANUAL DIFF FLAG NO
[2022-03-09 16:43] LABS: Basophils Absolute Auto 0.1 X10*3/uL (0.0-0.2); Basophils Percent Auto 0.7 % (0-2); Eosinophils Absolute Auto 0.2 X10*3/uL (0.0-0.4); Eosinophils Percent Auto 2.6 % (0-4); Hematocrit 38.5 % (37.0-47.0); Hemoglobin 12.1 g/dl (12.0-16.0); Imm Gran Abs Auto 0.02 X10*3/uL (0.00-0.03); Imm Gran Pct Auto 0.3 % (0.0-0.4); Lymphocytes Absolute Auto 1.8 X10*3/uL (1.2-4.9); Lymphocytes Percent Auto 26.4 % (20-40); Mean Corpuscular HGB Conc 31.4 g/dl (31.0-35.0); Mean Corpuscular Hemoglobin 26.3 pg (27.0-33.0); Mean Corpuscular Volume 83.7 fL (80.0-98.0); Mean Platelet Volume 9.9 fL (9.4-12.3); Monocytes Absolute Auto 0.6 X10*3/uL (0.1-1.2); Monocytes Percent Auto 8.9 % (2-11); Neutrophils Absolute Auto 4.2 x10*3/uL (2.0-8.3); Neutrophils Percent Auto 61.1 % (45-73); Platelet Count 336 X10*3/uL (160-400); White Blood Count 6.9 X10*3/uL (4.8-10.8)
[2022-03-09 17:08] LABS: Alanine Aminotransferase 18 U/L (0-31); Albumin Level 4.1 g/dL (3.5-5.0); Alkaline Phosphatase 98 U/L (39-117); Anion Gap 14 (12-20); Aspartate Amino Transferase 18 U/L (5-31); Bilirubin Total 0.2 mg/dL (0.0-1.0); Blood Urea Nitrogen 17 mg/dL (9-16); Calcium 9.6 mg/dL (8.4-10.2); Carbon Dioxide 29 mmol/L (22-29); Chloride 101 mmol/L (96-108); Estimated Glomerular Filt Rate 60; Glucose Random 95 mg/dL (60-115); Potassium 5.2 mmol/L (3.3-5.1); Sodium 139 mmol/L (135-145)
== END 2022-03-09 13:42 | disposition home or self-care (01) ==
LOC: HO.HMGCLDS 13:41
PROVIDERS: PCP Internal Medicine; Visit Provider Nurse Practitioner Adult Health
DX: C71.9 Malignant neoplasm of brain, unspecified (principal)
CPT/HCPCS: 36415; 80053; 85025

== ENCOUNTER 2022-04-08 10:27 | Outpatient (REF) | payer OTHER, SELFPAY | END 2022-04-08 10:28 | disposition home or self-care (01) | LOC: HO.HMGCLDS 10:27 | PROVIDERS: PCP Internal Medicine; Visit Provider Urology | DX: N39.0 Urinary tract infection, site not specified (principal) | CPT/HCPCS: 87086 ==

== ENCOUNTER 2022-04-09 09:00 | Outpatient (RCR) | payer OTHER, SELFPAY ==
--- NOTE | 2022-03-03 15:20 | MHC.PT.DC ---
[facility] [place] Office [place] Office [place] Office [address] Ovidio Gonzalez [address] [phone] F: [phone] F: [phone] F: [phone] F: [phone] Physical Therapy Discharge Report Diagnosis: This is a 57 yo female presenting to skilled PT with a script for pain in L hip. Date of Surgery: Date of Evaluation: 03/03/22 Date of Discharge: Treatments to Date: 1 Cancellations to Date: 0 No Shows to Date: 0 Discharge Status: Discharge Summary: This is a 57 yo female presenting to skilled PT with a script for pain in L hip. Patient presents s/p brain surgery in 2018 leaving residual aches and pains but more recently L hip pain. She reports her L hip locks up but is also hard to describe at the same time. Pain is located lateral hip, reports occasional low back pain but denies groin or buttock pain. She also reports bandlike numbness around the mid thigh, calf, as well as pins and needles at the bottom of the foot. Additionally, she also reports lateral ankle pain and numbness. Her hip pain is worse with sitting (enjoys horseback riding), descending stairs and movements of hip abd/add. She has been wearing compression socks that have been helpful. Assessment reveals pain that ranges up to a 7/10 at the worst. She demos decreased hamstring and hip ROM (on the L due to pain), decreased hip and glut strength, impaired gait pattern with decreased balance noted, s/s consistent with SIJ involvement (see eval) as well as gross functional decline with sitting, stairs and ambulation. She is a good candidate for skilled PT 2x/wk for 5wks but due to high co-pay coming 1x every other week. Electronically signed by: Please sign and return to therapist. Thank you for your referral.
--- NOTE | 2022-07-23 10:25 | MHC.PT.DC ---
[facility] [place] Office [place] Office [place] Office [address] [phone] F: [phone] F: [phone] F: [phone] F: [phone] Physical Therapy Discharge Report Diagnosis: This is a 57 yo female presenting to skilled PT with a script for pain in L hip. Date of Surgery: Date of Evaluation: 03/03/22 Date of Discharge: 07/23/22 Treatments to Date: 3 Cancellations to Date: 0 No Shows to Date: 0 Discharge Status: Patient Elected to Stop Discharge Summary: Patient with overall decline in health, elected to stop therapy. Has HEP to continue as needed. DC to self management at this time. Electronically signed by: Edel Fischer PT Please sign and return to therapist. Thank you for your referral.
== END 2022-07-23 10:26 | disposition home or self-care (01) ==
LOC: HO.PTCHIC 09:00
PROVIDERS: PCP Internal Medicine; Visit Provider Internal Medicine
DX: M25.552 Pain in left hip (principal)
CPT/HCPCS: 97110; 97140; 97163

== ENCOUNTER 2022-06-28 14:47 | Outpatient (REF) | payer OTHER, SELFPAY ==
[2022-06-28 14:50] LABS: MANUAL DIFF FLAG NO
[2022-06-28 14:58] LABS: Basophils Percent Auto 0.2 % (0-2); Hematocrit 38.8 % (37.0-47.0); Hemoglobin 13.7 g/dl (12.0-16.0); Imm Gran Abs Auto 0.18 X10*3/uL (0.00-0.03); Imm Gran Pct Auto 2.2 % (0.0-0.4); Lymphocytes Absolute Auto 1.3 X10*3/uL (1.2-4.9); Lymphocytes Percent Auto 15.5 % (20-40); Mean Corpuscular HGB Conc 35.3 g/dl (31.0-35.0); Mean Corpuscular Hemoglobin 28.9 pg (27.0-33.0); Mean Corpuscular Volume 81.9 fL (80.0-98.0); Monocytes Absolute Auto 0.3 X10*3/uL (0.1-1.2); Monocytes Percent Auto 3.5 % (2-11); NRBC Pct Auto 0.2 /100WBC (0.0-0.2); Neutrophils Absolute Auto 6.4 x10*3/uL (2.0-8.3); Neutrophils Percent Auto 78.6 % (45-73); Red Blood Count 4.74 X10*6/uL (4.20-5.50); Red Cell Distribution Width 17.1 % (11.0-16.0); White Blood Count 8.2 X10*3/uL (4.8-10.8)
[2022-06-28 15:09] LABS: Alanine Aminotransferase 70 U/L (0-31); Alkaline Phosphatase 92 U/L (39-117); Anion Gap 21 (12-20); Aspartate Amino Transferase 27 U/L (5-31); Bilirubin Total 0.6 mg/dL (0.0-1.0); Blood Urea Nitrogen 33 mg/dL (9-16); Calcium 8.4 mg/dL (8.4-10.2); Carbon Dioxide 20 mmol/L (22-29); Chloride 104 mmol/L (96-108); Estimated Glomerular Filt Rate > 60; Glucose Random 237 mg/dL (60-115); Potassium 4.2 mmol/L (3.3-5.1); Sodium 141 mmol/L (135-145)
[2022-06-28 15:54] LABS: Mean Platelet Volume 10.3 fL (9.4-12.3)
[2022-06-28 15:57] LABS: Platelet Count 71 X10*3/uL (160-400)
== END 2022-06-28 14:48 | disposition home or self-care (01) ==
LOC: HO.LNP 14:47
PROVIDERS: Visit Provider Psychiatry & Neurology Neurology
DX: C71.9 Malignant neoplasm of brain, unspecified (principal)
CPT/HCPCS: 80053; 85025

== ENCOUNTER 2022-07-07 12:13 | Outpatient (REF) | payer OTHER, SELFPAY ==
[2022-07-07 12:17] LABS: MANUAL DIFF FLAG NO
[2022-07-07 12:49] LABS: Basophils Percent Auto 0.7 % (0-2); Eosinophils Percent Auto 0.2 % (0-4); Hematocrit 34.6 % (37.0-47.0); Hemoglobin 12.4 g/dl (12.0-16.0); Imm Gran Abs Auto 0.19 X10*3/uL (0.00-0.03); Imm Gran Pct Auto 4.2 % (0.0-0.4); Lymphocytes Absolute Auto 1.6 X10*3/uL (1.2-4.9); Lymphocytes Percent Auto 35.9 % (20-40); Mean Corpuscular HGB Conc 35.8 g/dl (31.0-35.0); Mean Corpuscular Hemoglobin 29.6 pg (27.0-33.0); Mean Corpuscular Volume 82.6 fL (80.0-98.0); Mean Platelet Volume 9.9 fL (9.4-12.3); Monocytes Absolute Auto 0.2 X10*3/uL (0.1-1.2); Monocytes Percent Auto 4.9 % (2-11); Neutrophils Absolute Auto 2.4 x10*3/uL (2.0-8.3); Neutrophils Percent Auto 54.1 % (45-73); Platelet Count 103 X10*3/uL (160-400); Red Blood Count 4.19 X10*6/uL (4.20-5.50); Red Cell Distribution Width 17.2 % (11.0-16.0); White Blood Count 4.5 X10*3/uL (4.8-10.8)
[2022-07-07 12:56] LABS: Alanine Aminotransferase 64 U/L (0-31); Albumin Level 2.9 g/dL (3.5-5.0); Alkaline Phosphatase 79 U/L (39-117); Anion Gap 17 (12-20); Aspartate Amino Transferase 25 U/L (5-31); Bilirubin Total 0.5 mg/dL (0.0-1.0); Blood Urea Nitrogen 29 mg/dL (9-16); Calcium 8.3 mg/dL (8.4-10.2); Carbon Dioxide 19 mmol/L (22-29); Chloride 104 mmol/L (96-108); Estimated Glomerular Filt Rate > 60; Glucose Random 263 mg/dL (60-115); Potassium 3.7 mmol/L (3.3-5.1); Sodium 136 mmol/L (135-145); Total Protein 4.7 g/dL (6.5-8.0)
== END 2022-07-07 12:14 | disposition home or self-care (01) ==
LOC: HO.HVNA 12:13
PROVIDERS: Visit Provider Psychiatry & Neurology Neurology
DX: C71.9 Malignant neoplasm of brain, unspecified (principal)
CPT/HCPCS: 36415; 80053; 85025

== ENCOUNTER 2022-07-13 13:57 | Outpatient (REF) | payer OTHER, SELFPAY ==
[2022-07-13 14:18] LABS: Hematocrit 31.3 % (37.0-47.0); Hemoglobin 11.2 g/dl (12.0-16.0); Mean Corpuscular HGB Conc 35.8 g/dl (31.0-35.0); Mean Corpuscular Hemoglobin 29.3 pg (27.0-33.0); Mean Corpuscular Volume 81.9 fL (80.0-98.0); Mean Platelet Volume 10.2 fL (9.4-12.3); Platelet Count 164 X10*3/uL (160-400); Red Blood Count 3.82 X10*6/uL (4.20-5.50); Red Cell Distribution Width 17.8 % (11.0-16.0); White Blood Count 9.5 X10*3/uL (4.8-10.8)
[2022-07-13 14:31] LABS: NRBC Pct Auto 3.9 /100WBC (0.0-0.2)
[2022-07-13 15:04] LABS: Band Neutrophils Percent 18 % (3-5); Lymphocytes Absolute Manual 0.9 X10*3/uL (1.2-4.9); Lymphocytes Percent Manual 9 % (20-40); Metamyelocytes Absolute 0.2 X10*3/uL; Metamyelocytes Percent 2 %; Monocytes Absolute Manual 0.1 X10*3/uL (0.1-1.2); Monocytes Percent Manual 1 % (2-11); Myelocytes Absolute 0.1 X10*/uL; Myelocytes Percent 1 %; Neutrophils Absolute Manual 8.3 X10*3/uL (2.0-8.3); Neutrophils Percent Manual 69 % (45-73); Nucleated Red Blood Cells 9 /100WBC (0-0)
[2022-07-13 15:06] LABS: Alanine Aminotransferase 71 U/L (0-31); Albumin Level 2.9 g/dL (3.5-5.0); Alkaline Phosphatase 107 U/L (39-117); Anion Gap 20 (12-20); Aspartate Amino Transferase 29 U/L (5-31); Bilirubin Total 0.5 mg/dL (0.0-1.0); Blood Urea Nitrogen 24 mg/dL (9-16); Calcium 8.6 mg/dL (8.4-10.2); Carbon Dioxide 18 mmol/L (22-29); Chloride 103 mmol/L (96-108); Estimated Glomerular Filt Rate > 60; Glucose Random 262 mg/dL (60-115); Potassium 4.6 mmol/L (3.3-5.1); Sodium 136 mmol/L (135-145); Total Protein 4.9 g/dL (6.5-8.0)
[2022-07-13 15:07] LABS: RBC Morphology NOTED
[2022-07-13 15:08] LABS: Microcytosis 1+ (5-14) /OIF; Platelet Estimate NORMAL (NORMAL); Platelet Morphology Comment NORMAL
[2022-07-13 15:10] LABS: Acanthocytes 1+ (0-2) /OIF; Basophilic Stippling 1+ (0-2) /OIF; Burr Cells 1+ (0-2) /OIF; Ovalocytes 1+ (5-14) /OIF; Polychromasia 1+ (0-2) /OIF; Tear Drop Cells 1+ (0-2) /OIF
== END 2022-07-13 13:58 | disposition home or self-care (01) ==
LOC: HO.HVNA 13:57
PROVIDERS: Visit Provider Psychiatry & Neurology Neurology
DX: C71.9 Malignant neoplasm of brain, unspecified (principal)
CPT/HCPCS: 36415; 80053; 85007; 85027

== ENCOUNTER 2022-07-21 11:55 | Outpatient (REF) | payer OTHER, SELFPAY ==
[2022-07-21 12:06] LABS: Hematocrit 32.8 % (37.0-47.0); Hemoglobin 11.8 g/dl (12.0-16.0); Mean Corpuscular Hemoglobin 30.8 pg (27.0-33.0); Mean Corpuscular Volume 85.6 fL (80.0-98.0); Mean Platelet Volume 10.6 fL (9.4-12.3); Platelet Count 143 X10*3/uL (160-400); Red Blood Count 3.83 X10*6/uL (4.20-5.50); Red Cell Distribution Width 19.5 % (11.0-16.0)
[2022-07-21 12:09] LABS: NRBC Pct Auto 2.5 /100WBC (0.0-0.2); WBC ABN SCTR FOR CBC 1
[2022-07-21 13:16] LABS: Band Neutrophils Percent 20 % (3-5); Metamyelocytes Percent 1 %; Myelocytes Percent 2 %
[2022-07-21 13:18] LABS: Lymphocytes Percent Manual 10 % (20-40); Monocytes Percent Manual 2 % (2-11); Neutrophils Percent Manual 65 % (45-73); RBC Morphology NOTED
[2022-07-21 13:19] LABS: Acanthocytes 1+ (0-2) /OIF; Microcytosis 1+ (5-14) /OIF
[2022-07-21 13:20] LABS: Polychromasia 1+ (0-2) /OIF
[2022-07-21 13:21] LABS: Nucleated Red Blood Cells 2 /100WBC (0-0); Platelet Estimate SLIGHTLY DECREASED (NORMAL); Platelet Morphology Comment NORMAL
[2022-07-21 13:22] LABS: Ovalocytes 1+ (5-14) /OIF; Tear Drop Cells 1+ (0-2) /OIF
[2022-07-21 13:26] LABS: Alanine Aminotransferase 79 U/L (0-31); Albumin Level 3.1 g/dL (3.5-5.0); Alkaline Phosphatase 159 U/L (39-117); Anion Gap 18 (12-20); Aspartate Amino Transferase 31 U/L (5-31); Bilirubin Total 1.2 mg/dL (0.0-1.0); Blood Urea Nitrogen 25 mg/dL (9-16); Calcium 8.2 mg/dL (8.4-10.2); Carbon Dioxide 19 mmol/L (22-29); Chloride 104 mmol/L (96-108); Estimated Glomerular Filt Rate > 60; Glucose Random 270 mg/dL (60-115); Lymphocytes Absolute Manual 1.8 X10*3/uL (1.2-4.9); Metamyelocytes Absolute 0.2 X10*3/uL; Monocytes Absolute Manual 0.4 X10*3/uL (0.1-1.2); Myelocytes Absolute 0.4 X10*/uL; Neutrophils Absolute Manual 15.3 X10*3/uL (2.0-8.3); Potassium 3.8 mmol/L (3.3-5.1); Sodium 137 mmol/L (135-145); Total Protein 4.9 g/dL (6.5-8.0)
== END 2022-07-21 11:56 | disposition home or self-care (01) ==
LOC: HO.LNP 11:55
PROVIDERS: Visit Provider Psychiatry & Neurology Neurology
DX: C71.9 Malignant neoplasm of brain, unspecified (principal)
CPT/HCPCS: 80053; 85007; 85027